=== PATIENT | male | born 1980 | race Caucasian/White ===

== ENCOUNTER 2020-09-22 11:47 | Emergency (ER) | payer BC, OTHER ==
[2020-09-22] MEDS ORDERED: Ketorolac Tromethamine 30 MG/ML VIAL ONE (12:05)
== END 2020-09-22 12:29 | disposition home or self-care (01) ==
LOC: BURERS 11:47
DX: M79.644 Pain in right finger(s) (principal); F17.210 Nicotine dependence, cigarettes, uncomplicated
CPT/HCPCS: 96372; J1885